=== PATIENT | male | born 1970 | race Caucasian/White ===

== ENCOUNTER 2023-10-23 13:05 | Outpatient (CLI) | payer OTHER, SELFPAY ==
--- NOTE | ~2023-10-23 | US_ITS ---
EXAMINATION: US venous doppler [facility] DATE: 10/23/2023 14:12 INDICATION: Left lower limb swelling. TECHNIQUE: Grayscale ultrasound images without and with compression and Doppler ultrasound images of the left lower extremity veins were obtained. COMPARISON: None. FINDINGS: The visualized portions of left common femoral vein, profunda (deep) femoral vein, femoral vein, popl iteal vein, peroneal veins, posterior tibial veins, and greater saphenous vein outflow are patent. IMPRESSION: 1. No deep venous thrombosis. Reviewed, dictated and finalized at location A.
== END 2023-10-23 13:06 | disposition home or self-care (01) ==
LOC: ANHIMG 13:05
PROVIDERS: PCP Emergency Medicine; Visit Provider Emergency Medicine
DX: M79.89 Other specified soft tissue disorders (principal)
CPT/HCPCS: 93971